=== PATIENT | male | born 1975 | race Caucasian/White ===

== ENCOUNTER 2021-03-21 11:07 | Outpatient (REF) | payer MEDICAID, SELFPAY | END 2021-03-21 11:08 | disposition home or self-care (01) | LOC: HO.LAB 11:07 | PROVIDERS: Visit Provider Internal Medicine | DX: Z20.822 Contact with and (suspected) exposure to COVID-19 (principal) | CPT/HCPCS: C9803; U0003; U0005 ==

== ENCOUNTER 2024-09-19 22:42 | Emergency (ER) | payer MEDICAID, SELFPAY ==
--- NOTE | 2024-09-19 | ECG_ITS ---
Test Reason : DIZZINESS Blood Pressure : */* mmHG Vent. Rate : 72 BPM Atrial Rate : 72 BPM P-R Int : 134 ms QRS Dur : 76 ms QT Int : 384 ms P-R-T Axes : 28 45 25 degrees QTcB Int : 420 ms Normal sinus rhythm Normal ECG When compared with ECG of 12-Aug-2010 21:14, No significant change was found Referred By: Generic ED Physician Electronically Signed By: PERLITA CARRION MD
[2024-09-19 22:54] VITALS: BP 152/86; PULSE 88; RESP 18; TEMP 36.9; O2SAT 94; BMI 38.7
[2024-09-20 00:36] LABS: MANUAL DIFF FLAG NO
[2024-09-20 00:37] LABS: Basophils Percent Auto 0.3 % (0-2); Eosinophils Absolute Auto 0.4 X10*3/uL (0.0-0.4); Eosinophils Percent Auto 3.9 % (0-4); Hematocrit 43.5 % (42.0-52.0); Hemoglobin 15.4 g/dl (14.0-18.0); Imm Gran Abs Auto 0.07 X10*3/uL (0.00-0.03); Imm Gran Pct Auto 0.6 % (0.0-0.4); Lymphocytes Absolute Auto 1.6 X10*3/uL (1.2-4.9); Mean Corpuscular HGB Conc 35.4 g/dl (31.0-36.0); Mean Corpuscular Hemoglobin 30.9 pg (27.0-33.0); Mean Corpuscular Volume 87.3 fL (80.0-98.0); Mean Platelet Volume 10.4 fL (9.4-12.4); Monocytes Absolute Auto 0.7 X10*3/uL (0.1-1.2); Monocytes Percent Auto 6.4 % (2-11); Neutrophils Absolute Auto 8.3 x10*3/uL (2.0-8.3); Neutrophils Percent Auto 74.8 % (45-73); Platelet Count 210 X10*3/uL (160-400); Red Blood Count 4.98 X10*6/uL (4.60-5.80); Red Cell Distribution Width 12.5 % (11.0-16.0); White Blood Count 11.2 X10*3/uL (4.8-10.8)
[2024-09-20 00:53] LABS: Alanine Aminotransferase 61 U/L (0-40); Albumin Level 4.7 g/dL (3.5-5.0); Alkaline Phosphatase 51 U/L (39-117); Anion Gap 10 (12-20); Aspartate Amino Transferase 40 U/L (5-37); Bilirubin Total 0.4 mg/dL (0.0-1.0); Blood Urea Nitrogen 21 mg/dL (9-16); Calcium 9.6 mg/dL (8.4-10.2); Carbon Dioxide 27 mmol/L (22-29); Chloride 109 mmol/L (96-108); Creatinine Clr Calc Pharmacy 91.7; Estimated Glomerular Filt Rate > 60; Glucose Random 93 mg/dL (60-115); Lipase 31 U/L (8-78); Potassium 4.8 mmol/L (3.3-5.1); Sodium 141 mmol/L (135-145); Total Protein 8.1 g/dL (6.5-8.0)
[2024-09-20 01:03] LABS: Troponin-I High Sensitivity < 2.7 ng/L (<3.5-35.0)
[2024-09-20 04:12] VITALS: BP 148/89; PULSE 75; RESP 14; TEMP 36.4; O2SAT 98
[2024-09-20 05:49] VITALS: RESP 16; O2SAT 98
--- NOTE | 2024-09-20 06:54 | ED_ITS ---
HPI - Dizziness General Chief Complaint: Dizziness Stated Complaint: Dizziness Time Seen by Provider: 09/20/24 06:53 Source: patient Mode of arrival: ambulatory Limitations: no limitations History of Present Illness ED Provider: Dr. Supa Bonilla HPI Narrative: 49-year-old male with no significant past medical history who presents emergency department for evaluation of dizziness that began smoked a ?strong Golden cigarette?. Patient describes the dizziness as feeling off balance. He states that it would last sec to minutes and then resolve. Patient states this is 1st episode of dizziness. The patient states he also felt very hot and when he had the dizziness. He denied change in vision, headache, nausea, vomiting, weakness or numbness associated with the dizziness. At the time my evaluation the patient states that his dizziness is completely Patient states he does drink alcohol daily but wants to cut back on his consumption. Your alcohol prior to onset of his dizziness. He denied using drugs prior to the dizziness. Related Data Previous Rx's ?Medication ?Instructions ?Recorded meclizine 25 mg tablet (Dramamine 25 mg PO TID PRN dizziness #20 tabs 09/20/24 Less Drowsy) Allergies Allergy/AdvReac Type Severity Reaction Status Date / Time No Known Allergies Allergy Verified 09/19/24 22:55 Review of Systems 2 Review of Systems: Yes all other systems are reviewed and are negative [facility] Past Medical History [facility] Narrative: Social history: Patient does smoke cigarettes. He does drink alcohol frequently but mainly on the weekends. He smokes marijuana every 2-3 days. Social History Social History Smoked in Last 30 Days: Yes Use of substances other than those prescribed or required for medical reasons: Yes Substance Use Type: Crack/Cocaine and Marijuana Advance Directives: No Advance Directives Information Provided: Yes Do you have a plan to hurt others: No Plan Physical Exam 2 Vital Signs: Vital Signs: Last Vital Signs Temp 97.5 F 09/20/24 04:12 Pulse 75 09/20/24 04:12 Resp 16 09/20/24 05:49 BP 148/89 H 09/20/24 04:12 Pulse Ox 98 09/20/24 05:49 O2 Del Method Room Air 09/20/24 05:49 BMI result Body Mass Index 38.7 Vital signs revealed an elevated blood pressure otherwise unremarkable Exam: General: Awake, alert in no distress Head: Normocephalic, atraumatic EENT: PERRL, Lids normal, sclera normal, conjunctiva normal, nose normal , ears normal, throat without erythema or exudates Neck: Supple, no adenopathy Lung: breath sounds symmetric, no wheezing, rales or rhonchi Chest: symmetric movement, nontender Heart: regular rate and rhythm, normal S1, S2 no murmurs or rubs Abdomen: soft, non-tender, nondistended, normal bowel sounds Back: no vertebral tenderness, no CVAT Extremities: no deformities, moves all extremities symmetrically Neuro: General: Awake, alert, oriented, normal speech Cranial nerves: Cranial nerves intact Strength: Moves all extremities symmetrically, strength 5/5 Cerebellar: Good [id number]-to-finger, good rapid finger movement, normal heel to angelo Psych: Pleasant, cooperative Medical Decision Making Medical Decision Making [facility] Narrative: 49-year-old male with no significant past medical history who presents emergency department for evaluation of dizziness that began smoked a ?strong Golden cigarette?. Patient describes the dizziness as feeling off balance. He states that it would last sec to minutes and then resolve. Patient states this is 1st episode of dizziness. The patient states he also felt very hot and when he had the dizziness. He denied change in vision, headache, nausea, vomiting, weakness or numbness associated with the dizziness. At the time my evaluation the patient states that his dizziness is completely. Vital signs were normal. Neurologic exam was normal with a normal cerebellar exam Differential diagnosis: ?Includes but is not limited to cerebellar stroke, benign positional vertigo, adverse reaction to drugs ingestion, arrhythmia, electrolyte abnormalities, anemia Course: My independent interpretation patient's laboratory evaluation is as follows: WBC normal 11,200. AST and ALT elevated 40 and 61. High sensitive troponin I was below detectable limits. Twelve EKG was The patient had intermittent dizziness which is consistent with benign positional vertigo. I did discuss this with the patient. The patient is not dizzy at this time. He was given a prescription for meclizine 25 mg 3 times a day as needed for dizziness. He was given printed and verbal instructions and discharged home. I did advise the patient that has LFTs are elevated and he should stop drinking alcohol or cut down significantly in the amount of alcohol that he drinks daily. Admission/Observation Consideration of admission/observation: Escalation of care including admission/observation considered (Yes) Lab Data [facility] Lab Attestation statement: I reviewed the patient's lab results. 09/20/24 00:23 09/20/24 00:23 Labs: Lab Results 09/20/24 Range/Units 00:23 WBC 11.2 H (4.8-10.8) X10*3/uL RBC 4.98 (4.60-5.80) X10*6/uL Hgb 15.4 (14.0-18.0) g/dl Hct 43.5 (42.0-52.0) % MCV 87.3 (80.0-98.0) fL MCH 30.9 (27.0-33.0) pg MCHC 35.4 (31.0-36.0) g/dl RDW 12.5 (11.0-16.0) % Plt Count 210 (160-400) X10*3/uL MPV 10.4 (9.4-12.4) fL Immature Gran % (Auto) 0.6 H (0.0-0.4) % Neut % (Auto) 74.8 H (45-73) % Lymph % (Auto) 14.0 L (20-40) % Hendricks % (Auto) 6.4 (2-11) % Eos % (Auto) 3.9 (0-4) % Baso % (Auto) 0.3 (0-2) % Lymph # (Auto) 1.6 (1.2-4.9) X10*3/uL Hendricks # (Auto) 0.7 (0.1-1.2) X10*3/uL Eos # (Auto) 0.4 (0.0-0.4) X10*3/uL Baso # (Auto) 0.0 (0.0-0.2) X10*3/uL Abs Immat Gran (auto) 0.07 H (0.00-0.03) X10*3/uL Absolute Neuts (auto) 8.3 (2.0-8.3) x10*3/uL Absolute Nucleated RBC 0.000 (0.0-0.012) X10*3/uL Nucleated RBC % (auto) 0.0 (0.0-0.2) /100WBC Sodium 141 (135-145) mmol/L Potassium 4.8 (3.3-5.1) mmol/L Chloride 109 H (96-108) mmol/L Carbon Dioxide 27 (22-29) mmol/L Anion Gap 10 L (12-20) BUN 21 H (9-16) mg/dL Creatinine 1.25 (0.5-1.4) mg/dL Estim Creat Clear Calc 91.7 Estimated GFR > 60 Random Glucose 93 (60-115) mg/dL Calcium 9.6 (8.4-10.2) mg/dL Magnesium 2.0 (1.6-2.6) mg/dL Total Bilirubin 0.4 (0.0-1.0) mg/dL AST 40 H (5-37) U/L ALT 61 H (0-40) U/L Alkaline Phosphatase 51 (39-117) U/L Troponin I High Sens < 2.7 (<3.5-35.0) ng/L Total Protein 8.1 H (6.5-8.0) g/dL Albumin 4.7 (3.5-5.0) g/dL Lipase 31 (8-78) U/L Independent Interpretation I performed an independent interpretation of an: EKG Interpretation: My independent interpretation patient's 12 EKG done on 09/20/2024 at for hours is as follows: Normal sinus rhythm rate of 72, normal SC interval, QRS duration QTC interval, no ST segment elevation, no ST segment depression, small Q-waves in 3 and F, no significant T-wave abnormalities compared to EKG dated 08/12/2010 at 21:14 hours there is no significant change Prescription Management I considered prescription management with: Other (Anti vertigo: Meclizine) Discharge Plan Discharge Clinical Impression: Benign paroxysmal positional vertigo Patient Disposition: Home, Self-Care Instructions: Benign Paroxysmal Positional Vertigo (ED) Additional Instructions: Your blood work was normal except for a very slight elevation in your liver function tests. You should cut down on the amount of alcohol that you drank or stop completely. If you continue to drink alcohol you can continue to damage your liver and eventually developed cirrhosis of the liver. Your EKG (electrical picture of your heart) was normal. Your physical examination was unremarkable. At this time I believe that you dizziness is caused by the balance mechanism in your inner ear, this is called positional vertigo. Take meclizine 25 mg pills, 1 pill 3 times a day for the next 3 days for dizziness then as needed for dizziness. ?This medication will make you sleepy. ?Do not drive or work while taking this medication. Follow-up with your doctor in 2 days. Please return to the emergency department if your symptoms get worse or if you develop any symptoms that are concerning to you. Prescriptions: New meclizine [Dramamine Less Drowsy] 25 mg tablet 25 mg PO TID PRN (Reason: dizziness) Qty: 20 0RF Print Language: Swazi
[2024-09-20 08:15] VITALS: BP 134/74; PULSE 90; RESP 16; TEMP 36.8; O2SAT 97
== END 2024-09-20 08:17 | disposition home or self-care (01) ==
PROVIDERS: Emergency Provider Emergency Medicine Emergency Medical Services
DX: H81.10 Benign paroxysmal vertigo, unspecified ear (principal)
CPT/HCPCS: 36415; 80053; 83690; 83735; 84484; 85025; 93005; 99283; 99284

== ENCOUNTER → 2024-09-19 | Outpatient (BNV) | payer SELFPAY | PROVIDERS: Emergency Provider Emergency Medicine Emergency Medical Services; Visit Provider Internal Medicine Cardiovascular Disease | DX: R42 Dizziness and giddiness (principal) | CPT/HCPCS: 93010 ==